=== PATIENT | male | born 1980 | race Caucasian/White ===

== ENCOUNTER 2020-02-04 06:26 | Emergency (ER) | payer OTHER ==
[2020-02-04] MEDS ORDERED: Ibuprofen 800 MG TAB ONE (06:43)
--- NOTE | 2020-02-04 07:35 | RAD ---
Right femur 2 views HISTORY: Right leg injury. FINDINGS: The femur is intact. 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 No acute fracture, disloc ation, or radiopaque foreign bodies. IMPRESSION: No acute osseous abnormalities are demonstrated.
== END 2020-02-04 07:09 | disposition home or self-care (01) ==
LOC: ERS 06:26
DX: S70.11XA Contusion of right thigh, initial encounter (principal); F32.9 Major depressive disorder, single episode, unspecified; F17.210 Nicotine dependence, cigarettes, uncomplicated; W20.8XXA Other cause of strike by thrown, projected or falling object, initial encounter; Y99.0 Civilian activity done for income or pay